=== PATIENT | male | born 1940 | race Caucasian/White ===

== ENCOUNTER 2017-06-12 12:50 | Outpatient (CLI) | payer MEDICARE ==
[2017-06-12 14:18] LABS: ALT (SGPT) 14 U/L (8-55); AST (SGOT) 17 U/L (5-34); Albumin 3.9 g/dL (3.4-4.8); Alkaline Phosphatase 84 U/L (40-150); Anion Gap 14 mmol/L (10-20); BUN (Urea Nitrogen) 14 mg/dL (8.4-25.7); Bilirubin, Total 0.8 mg/dL (0.2-1.2); Calc. Creatinine Clearance 0 mL/min (70-130); Calcium 8.5 mg/dL (7.8-10.44); Carbon Dioxide 25 mmol/L (23-31); Cardiac Risk 2.5 (Less than 4.5); Chloride 106 mmol/L (98-107); Cholesterol 135 mg/dl (< 200 Desired); Estimated GFR-MDRD Greater than 90; Globulin 3.2 g/dL (2.4-3.5); Glucose 77 mg/dL (83-110); HDL Cholesterol 53 mg/dL (>60 Neg Risk); LDL Cholesterol, Calculated 70 mg/dL; Potassium 4.2 mmol/L (3.5-5.1); Protein, Total 7.1 g/dL (5.8-8.1); Sodium 141 mmol/L (136-145); Triglycerides 60 mg/dL (Less than 150)
== END 2017-06-12 12:51 | disposition home or self-care (01) ==
LOC: NAVSJIPCSP 12:50
PROVIDERS: ATTEND Internal Medicine Cardiovascular Disease
DX: E78.00 Pure hypercholesterolemia, unspecified (principal)
CPT/HCPCS: 36415; 80053; 80061

== ENCOUNTER 2018-08-13 09:14 | Outpatient (CLI) | payer MEDICARE ==
--- NOTE | 2018-08-13 11:21 | CT ---
CT BRAIN WITHOUT IV CONTRAST: HISTORY: A 78-year-old male with a history of headache and confusion. FINDINGS: No focal mass or midline shift. No intraaxial or extraaxial hemorrhage. The sinuses and mastoids ar e clear. IMPRESSION: No acute intracranial process. No mass or bleed. POS: [facility]
== END 2018-08-13 09:15 | disposition home or self-care (01) ==
LOC: NAV CT 09:14
PROVIDERS: ATTEND Psychiatry & Neurology Neurology
DX: R51 Headache (principal)
CPT/HCPCS: 70450